=== PATIENT | female | born 1990 | race Caucasian/White ===

== ENCOUNTER 2018-11-16 03:57 | Emergency (ER) | payer OTHER ==
[~2018-11-16] VITALS: Ht 157.5 cm; Wt 102.1 kg
[2018-11-16] MEDS ORDERED: PENICILLIN VK500 MG PO (04:42)
[2018-11-16] MEDS ORDERED: HYDROCODON-ACE1 EAC7 PO (04:42)
[2018-11-16 04:54] VITALS: BP 130/71
== END 2018-11-16 04:54 | disposition home or self-care (01) ==
LOC: M.ERS 03:57
DX: J02.9 Acute pharyngitis, unspecified (principal)